=== PATIENT | male | born 1985 | race Caucasian/White ===

== ENCOUNTER 2025-06-14 17:51 | Day surgery (SDC) | payer MEDICAID, SELFPAY ==
[2025-06-14 17:52] VITALS: BP 168/125; PULSE 72; RESP 16; TEMP 35.5; O2SAT 97; BMI 38.7
--- NOTE | 2025-06-14 18:00 | EKG12_ITS ---
Test Reason : CP Blood Pressure : */* mmHG Vent. Rate : 81 BPM Atrial Rate : 81 BPM P-R Int : 160 ms QRS Dur : 98 ms QT Int : 356 ms P-R-T Axes : 37 28 91 degrees QTcB Int : 413 ms Critical Test Result: STEMI Normal sinus rhythm ST elevation consider inferior injury or acute infarct ACUTE SC / STEMI Consider right ventricular involvement in acute inferior infarct Abnormal ECG Confirmed by LUKAS ORDOÑEZ, LEILA ([id number]), video news editor [address] ([id number]) on 06/15/2025 11:03:34 AM Referred By: Callie Sánchez Confirmed By: LEILA GAYTAN MD
[2025-06-14 18:06] VITALS: PULSE 72
[2025-06-14 18:12] VITALS: O2SAT 98
[2025-06-14 18:12] LABS: Hematocrit 52.6 % (40-54); Immature Granulocytes Count 0.050 X10^3/uL (0.0-0.0); Mean Corp Hgb Conc 35.4 g/dL (32-36); Mean Corpuscular Volume 90.8 fL (80-94); Mean Platelet Vol. 10.4 fl (6.2-12.0); NRBC Flagged by Analyzer 0 % (0-5); Platelet Count 370 K/mm3 (150-450); RBC Distribution Width CV 11.9 % (11.6-14.6); RBC Distribution Width SD 39.4 fl (35.1-43.9); Red Blood Count 5.79 M/mm3 (4.6-6.2); White Blood Count 12.3 K/mm3 (4.4-11.0)
[2025-06-14] MEDS: TICAGRELOR 90 MG TABLET 180 MG PO (18:14)
--- NOTE | 2025-06-14 18:15 | ED.VIS.CHEST ---
HPI History of Present Illness Chief Complaint: Chest Pain Informant: spouse/S.O. Onset/Context/Timing Onset: Days Activity at onset: gradual Timing: Intermittent Quality: Positive for Aching, Heaviness and Pain Current Severity: Moderate Maximum Severity: Severe Worsened By: Nothing Relieved By: Nothing Associated Symptoms: Positive for Nausea, Vomiting, Diaphoresis and Dyspnea Narrative Narrative: Healthy 29-year-old male history of kidney stones. Had chest pain on Friday and . Resolved. Yesterday he had no chest pain and he had 3 stuttering episodes of chest pain today associated with nausea and vomiting, diaphoresis and shortness of breath. He has no known cardiac history. His dad of an [place] at 41. Prior Similar Symptoms: No Recent Illness/Hospitalization: No CVD Risk Factors: Positive for Family History 1' </=55; Negative for Hypertension, Diabetes or Hypercholesterolemia PE Risk Factors: Negative for Recent Travel/Surgery, Recent Immobilization, Prior DVT or PE, Cancer or OCP + Smoking + >/=35 TAD Risk Factors: Negative for Marfan's Syndrome [facility] Medical History (Updated 06/14/25 @ 19:[address] Katherine Epperson, DO) Marijuana use Obesity History of renal calculi Tobacco abuse Home Medications ?Medication ?Instructions ?Recorded ?Last Taken ?Type NK 06/14/25 Unknown History Allergy/AdvReac Type Severity Reaction Status Date / Time No Known Allergies Allergy Verified 06/14/25 18:23 Family History (Updated 06/14/25 @ 19:[address] Katherine Epperson, DO) Other CAD (coronary artery disease) Heart disease Social History (Updated 06/14/25 @ 19:[address] Katherine Epperson DO) Smoking Status: Current every day smoker tobacco type: cigarettes alcohol intake: current alcohol intake frequency: 0-2 drinks per day Alcohol type: beer substance use type: marijuana ROS ROS ED ROS Narrative Intermittent chest pain last several days. Shortness of breath. Nausea vomiting. Diaphoresis. Constitutional Constitutional ED: Denies chills or fever(s) Eyes Eyes: Reports none ENT ENT ED: Denies ear pain Cardiovascular Cardiovascular: Reports chest pain Respiratory/Chest Respiratory/Chest: Reports dyspnea and dyspnea on exertion Gastrointestinal Gastrointestinal: Denies abdominal pain or constipation Genitourinary Genitourinary ED: Denies dysuria or hematuria Musculoskeletal Musculoskeletal: Denies arthralgias Integumentary Denies abscess Neurologic Neurologic: Denies headache(s) Psychiatric Psychiatric: Denies anxiety Endocrine Endocrinology: Denies cold intolerance Hematologic/Lymphatic Hematologic/Lymphatic: Denies easy bleeding, easy bruising or lymphadenopathy Allergic/Immunologic Allergic/Immunologic ED: Denies mouth swelling, tongue swelling or urticaria EXAM Physical Exam Narrative Exam Narrative: [id number] male sitting upright in bed vital signs are stable and blood pressure elevated 160/125. Pulse ox 97% on room air no hypoxia. Planing of 6 out of 10 chest pain. present in room. H EENT exam pupils round react light. Moist mutes membranes. Neck nontender. No JVD. No lymphadenopathy. Lungs clear to auscultation bilaterally. Heart regular rhythm rate about 72 no murmur. Chest wall and ribs nontender. Abdomen soft nontender. Moving all 4 extremities. Calves nontender no edema no cords. Normal weapons officer naval activity strength. Equal symmetrical radial pulses. Dorsi plantarflexion intact. Neurologically is awake alert. Answer questions following commands. Const Vital Signs: 06/14/25 17:52 06/14/25 18:12 Temperature 96 F L Temperature Source Temporal Pulse Rate 72 Respiratory Rate 16 Blood Pressure 168/125 H Blood Pressure Mean 139 Pulse Ox 97 98 Oxygen Delivery Method Room Air Room Air Positive well nourished and well developed; Negative for cachectic, contractures or unkempt General Appearance ED: well developed; Negative for unkempt, cachectic, contractures, NAD or pallor Nutritional Appearance: Negative for cachectic HEENT Reports moist mucous membranes normocephalic and atraumatic Eyes PERRL and EOMs intact bilaterally Neck no lymphadenopathy, supple and no JVD General: Negative for tenderness Chest Wall inspection of chest normal and palpation of chest normal Resp normal respiratory effort and clear to auscultation bilaterally Cardio regular rate, regular rhythm, S1 normal heart sound, S2 normal heart sound and no murmurs Peripheral Pulses: pulses 2+ throughout GI normal to inspection, nondistended, normoactive bowel sounds, soft to palpation, non-tender, non-distended and no masses Back/Spine no CVA tenderness and no thoracic nor lumbar tenderness Extremity normal to inspection General Extremety ED: Negative for edema, pulses abnormal or tenderness General Extremity: Negative for edema or pulses abnormal Neuro oriented x3, CN's II-XII intact bilaterally and no sensory deficits noted Sensorium / Orientation: awake, alert, oriented to person, oriented to place and oriented to time Motor Exam: strength 5/5 throughout Psych mental status grossly normal Appearance: Negative for unkempt Attitude: No agitated Mood & Affect: Negative for depressed, anxious or tearful Skin no rashes or lesions noted and no wounds General Skin Exam: Negative for jaundice or pallor Rashes: No rashes noted Heart Score History: Highly Suspicious ECG: Significant ST-Depression (ST elevation inferiorly. Reciprocal changes.) Age: </= 45 years Risk Factors: 1 or 2 Risk Factors Score: 5 MDM MDM MDM Narrative Medical decision making narrative: 39-year-old male presents with chest pain intermittent since Friday. EKGs consistent with acute inferior [place] with ST elevation in 2 [address] elevation in V3 through V6 also. Depression in leads I and aVL and V2. Consistent with inferior lateral [place]. Patient will be treated with 4 baby aspirin, Brilinta 180 p.o. and a heparin bolus and drip. He will be given morphine for pain and Zofran. Pacer pads been applied. Yelitza spoke to engraver machine STEMI team was called once we obtain EKG to be taken to the [facility]. I have discussed this already with the patient and his . Patient was taken to the [facility]. Prior to going to [facility] he was given a second dose of morphine for his pain. He is currently critically ill but stable. History & Record Review Discussion w/independent historian: Patient and Family Additional record(s) reviewed:: No prior records Lab Data Attestation: I reviewed the patient's lab results. Lab results narrative: CBC shows a white count 12.3. H&H 18.6 and 52. Platelets 370. Chemistries show gap 16. BUN and creatinine of 10 and 0.9. Glucose 158. Initial troponin 236. Chest x-ray no acute process normal cardiac silhouette, mediastinum and aortic knob. Portable film. Labs: Laboratory Results - last 24 hr 06/14/25 18:00 WBC 12.3 H RBC 5.79 Hgb 18.6 H* Hct 52.6 MCV 90.8 MCH 32.1 H MCHC 35.4 RDW Std Deviation 39.4 RDW Coeff of Lisa 11.9 Plt Count 370 MPV 10.4 Immature Gran % (Auto) 0.400 Neut % (Auto) 50.9 Lymph % (Auto) 38.3 [place] % (Auto) 7.5 Eos % (Auto) 1.8 Baso % (Auto) 1.1 H Absolute Neuts (auto) 6.2 Absolute Lymphs (auto) 4.69 H Nucleated RBC % 0 PT 12.1 INR 0.9 APTT 21.7 L Sodium 141 Potassium 4.1 Chloride 104 Carbon Dioxide 20.9 L Anion Gap 16 H BUN 10 Creatinine 0.97 Estim Creat Clear Calc 146.47 Est GFR (MDRD) Non-Af 101 BUN/Creatinine Ratio 9.8 L Glucose 158 H Calcium 9.8 Troponin T High Sens 236 H* Radiography Chest X-Ray - ED: 1 View, Read by ED Physician, Normal, Heart, Lungs, Mediastinum, Bony Structures, No Acute Disease and Chronic Changes Diagnostic Testing: Chest x-ray, portable, single view 2 films, interpreted by myself shows normal cardiac silhouette. Normal mediastinum normal aorta. No obvious signs of dissection or widened mediastinum. No acute process. Chronic changes. Rhythm Strip Rhythm Strip: Sinus Rhythm Rate: 81 Ectopy: None EKG Initial EKG: Attestation: I personally reviewed and interpreted this EKG as follows: Interpretation: Sinus Rhythm, No Acute Injury Pattern and S-T Elevation Comments: Normal sinus rhythm. Rate 81. Acute inferolateral [place] with ST elevation in 2, 3, aVF along with ST elevation in V3 through V6 with ST depression in leads I, aVL and V2. Prior EKG tracings: available for review Prior: Changed Critical Care Time Critical Care Time: Yes Critical care time (excluding procedures): 30-74 minutes, Including time spent:, Discussing w/Patient &/or Family/[facility] Frame Tender, Discussing w/Consultants, Arranging Admission or Transfer, Performing Direct Patient Care at Bedside and - (35 minutes.) Discharge Plan Dx/Rx/DC Orders Clinical Impression: Acute inferolateral myocardial infarction, Chest pain, History of renal calculi Disposition Disposition: [facility] Discharge Date/Time: 06/14/25 19:21
[2025-06-14 18:22] LABS: Hemoglobin 18.6 g/dL (13.0-16.5)
[2025-06-14] MEDS: Heparin Injection (Vial) 5,000 UNIT/ML VIAL 4000 UNIT IV (18:25)
--- NOTE | 2025-06-14 18:26 | PCM.HP.STD ---
HPI - General General Date of Admission: 06/14/25 Date of Service: 06/14/25 Chief Complaint: Chest pain HPI Narrative DALTON BECKFORD, is a 39 M who presented to the emergency department at [facility] on 06/14/2025 with a chief complaint of chest pain. Patient has been experiencing accelerated chest symptoms over the last 3 days. Yesterday he had experienced no symptoms. He states initially he was just having intermittent brief episodes but today he had 3 more stuttered periods of pain. He had associated nausea and vomiting, diaphoresis, and shortness of breath. He has no known cardiac history but has known familial cardiac history with his father dying at 41 from a massive [place]. He smokes about a pack of cigarettes daily. He drinks a couple of beers 12 ounce daily. He admits to frequent marijuana use. EKG on arrival was consistent with inferior [place] and STEMI alert was called. Vital signs emergency department showed temperature of 96, heart rate 72, respiratory rate was 16, blood pressure was 168/125 and pulse ox 97% on room air. CBC showed a mild leukocytosis with white count of 12.3, erythrocytosis with a hemoglobin of 18.6 and normal platelet count. Chemistry panel showed normal electrolytes and renal function his glucose was 158 and his initial troponin was 236. Chest x-ray was unremarkable. He was treated in the emergency department with aspirin, heparin and placed on a heparin drip, and given morphine and Brilinta and was taken emergently to the [facility]. [facility] Medical History (Updated 06/14/25 @ 19:[address] Katherine Epperson DO) Marijuana use Obesity History of renal calculi Tobacco abuse Home Medications ?Medication ?Instructions ?Recorded ?Last Taken ?Type NK 06/14/25 Unknown History Allergy/AdvReac Type Severity Reaction Status Date / Time No Known Allergies Allergy Verified 06/14/25 18:23 Family History (Updated 06/14/25 @ 19:[address] Katherine Epperson DO) Other CAD (coronary artery disease) Heart disease no surgical history Social History (Updated 06/14/25 @ 19:[address] Katherine Epperson DO) Smoking Status: Current every day smoker tobacco type: cigarettes alcohol intake: current alcohol intake frequency: 0-2 drinks per day Alcohol type: beer substance use type: marijuana ROS Constitutional Constitutional: Reports fatigue and weakness; Denies anorexia, change in weight, chills, fever(s), malaise, night sweats or other Eyes Eyes: Denies blurry vision, change in eye color, change in vision, discharge from eye(s), double vision, erythema, eye pain, loss of vision or other ENT HEENT: Denies abnormal hearing, dysphagia, ear pain, epistaxis, headache(s), hearing loss, nasal congestion, nasal discharge, post nasal drip, sinus pressure, sore throat or other Cardiovascular Cardiovascular: Reports chest pain and other Details: Diaphoresis ; Denies claudication, dyspnea on exertion, edema, lightheadedness, orthopnea, palpitations, paroxysmal nocturnal dyspnea, rapid heart rate or syncope Respiratory/Chest Respiratory/Chest: Reports dyspnea and shortness of breath at rest; Denies cough, excessive phlegm production, hemoptysis, productive cough, shortness of breath with exertion, wheezing or other Gastrointestinal Gastrointestinal: Reports nausea and vomiting; Denies abdominal pain, coffee ground emesis, constipation, diarrhea, dyspepsia, hematemesis, hematochezia, loose stools, melena or other Genitourinary Genitourinary: Denies burning urination, difficulty urinating, dysuria, hematuria, nocturia, urinary frequency, urinary hesitancy, urinary incontinence, urinary urgency or other Musculoskeletal Musculoskeletal: Reports back pain; Denies arthralgias, joint pain, joint stiffness, joint swelling, myalgias, neck pain or other Neurologic Neurologic: Denies abnormal gait, abnormal speech, confusion, disequilibrium, dizziness, focal weakness, headache(s), numbness, paresthesias, seizure-like activity, seizures, syncope, tingling, tremor(s) or other Psychiatric Psychiatric: Denies anxiety, depression, homicidal ideation, suicidal ideation or other Endocrine Endocrinology: Denies change in body appearance, cold intolerance, excessive sweating, heat intolerance, polydipsia, polyuria or other Hematologic/Lymphatic Hematologic/Lymphatic: Denies anemia, easy bleeding, easy bruising, lymphadenopathy or other Allergic/Immunologic Allergic/Immunologic: Denies rhinitis, hives, eczemia, asthma or other Vital Signs Vital Signs Vital Signs: 06/14/25 17:52 06/14/25 18:12 Temperature 96 F L Temperature Source Temporal Pulse Rate 72 Respiratory Rate 16 Blood Pressure 168/125 H Blood Pressure Mean 139 Pulse Ox 97 98 Oxygen Delivery Method Room Air Room Air Weight Weight: 133.356 kg Body Mass Index (BMI) 38.7 Physical Exam Const alert, oriented x3 and well nourished; Negative for no apparent distress, average body habitus or healthy appearing Constitutional Narrative: Obese, diaphoretic, uncomfortable appearing, white male, sitting up in bed, significant other at bedside, does not appear toxic General Appearance: cooperative HEENT normocephalic, head/scalp atraumatic, hearing grossly normal bilaterally and moist oral mucous membranes HEENT Narrative: Mallampati 3-4, no thrush Eyes conjunctivae normal Eyes Narrative: No scleral icterus Neck Neck Narrative: Neck is short and thick Resp normal respiratory effort, no retractions, no use of accessory muscles and clear to auscultation bilaterally Auscultation: Negative for crackles, rhonchi or wheezes Cardio regular rate, regular rhythm, S1 normal heart sound, S2 normal heart sound, no murmurs, no rub, no gallops and no clicks GI normal to inspection, nondistended, normoactive bowel sounds, soft to palpation and non-tender GI Narrative: Protuberant abdomen Extremity no clubbing, cyanosis or edema Extremity Narrative: Radial and pedal pulses are 2+ Neuro moves all extremities and no focal motor deficits Speech: speech normal Psych Psych Narrative: Slightly antsy, appears anxious Results Lab / Micro Data 06/14/25 18:00 06/14/25 18:00 Labs: Laboratory Results - last 24 hr 06/14/25 18:00: WBC 12.3 H, RBC 5.79, Hgb 18.6 H*, Hct 52.6, MCV 90.8, MCH 32.1 H, MCHC 35.4, RDW Std Deviation 39.4, RDW Coeff of Lisa 11.9, Plt Count 370, MPV 10.4, Immature Gran % (Auto) 0.400, Neut % (Auto) 50.9, Lymph % (Auto) 38.3, [place] % (Auto) 7.5, Eos % (Auto) 1.8, Baso % (Auto) 1.1 H, Absolute Neuts (auto) 6.2, Absolute Lymphs (auto) 4.69 H, Nucleated RBC % 0 Rhythm Strip Rhythm Strip: Sinus Rhythm Rate: 81 Ectopy: None Assessment & Plan Assessment/Plan (1) Hyperglycemia: (2) Erythrocytosis: (3) Leukocytosis: (4) Acute inferolateral myocardial infarction: (5) Chest pain: PLAN: Plan Acute inferior wall STEMI -Patient taken emergently to the [facility] - Given Brilinta, aspirin, heparin, morphine, and Zofran in the emergency department - Admit to ICU postcardiac catheterization - Start aspirin 81 mg daily - atorvastatin 80 mg daily - Check lipids - Check hemoglobin A1c - Check echocardiogram - Cardiology to add p.o. metoprolol and RONY inhibitor as able - Cardiology consulted Leukocytosis - Suspect reactive - Repeat CBC in a.m. Erythrocytosis - Unclear if this is baseline or acute - Trend - Could have chronic hypoxia related to obesity hypoventilation syndrome or untreated obstructive sleep apnea versus chronic CO elevation due to tobacco abuse Hyperglycemia - Suspect reactive and nonfasting - 158 - Check hemoglobin A1c Tobacco abuse - Recommend cessation and discussed with patient on admission -Continue reinforcement - Nicotine patch if patient needs Marijuana use - Recommend cessation Obesity - BMI 38.8 - Recommend weight loss - Complicates treatment, prognosis, outcomes DVT prophylaxis - Subcu Lovenox 40 twice daily CODE STATUS - Full code Charges/Coding Visit Charges Inpatient E&M: 53639 Init Hosp L2
--- NOTE | 2025-06-14 18:28 | RAD_ITS ---
PROCEDURE: CHEST 1 VIEW (PORTABLE) 06/14/2025 REASON FOR EXAM: CHEST PAIN TECHNIQUE: Frontal view of the chest. COMPARISON: None. FINDINGS: LUNGS AND PLEURA: The lungs are clear. No pleural effusion or pneumothorax. HEART AND MEDIASTINUM: The heart size and mediastinal contours are normal. BONES: No acute osseous abnormality. RAD/Chest 1 View (Portable) IMPRESSION: Negative Chest. Reading Location: [id number]
[2025-06-14 18:40] LABS: Anion Gap 16 (5-15); BUN 10 mg/dL (4-19); BUN/Creat Ratio 9.8 RATIO (10-20); Calcium,Total 9.8 mg/dL (7.6-11.0); Carbon Dioxide 20.9 mmol/L (21.0-32.0); Chloride 104 mmol/L (98-108); Estimated Creatinine Clearance 146.47 ml/min (50-250); Glucose 158 mg/dL (70-99); Potassium 4.1 mmol/L (3.3-5.1); Troponin T High Sensitivity 236 ng/L (<=22)
[2025-06-14 18:46] VITALS: BP 172/124; PULSE 82; RESP 22; TEMP 36.6; O2SAT 98
[2025-06-14 19:33] LABS: Prothrombin Time (Protime)PT. 12.1 SECONDS (11.7-14.9)
[2025-06-14 19:34] LABS: Partial Thromboplast Time 21.7 Seconds (24.1-36.2)
--- NOTE | 2025-06-14 19:39 | CM.ED ---
Social Work Reason for visit: STEMI alert SW met with patients sig other in the hallway while they were getting patient ready to go to laboratory inspector. SO stated that patient had been having symptoms on and off for 3 days before she could get him to agree to come in. SO grateful for care patient was receiving. No further needs at this time. Aidee Chavis, FIRE EQUIPMENT INSPECTOR, HAZARDOUS SUBSTANCES ENGINEER
--- NOTE | 2025-06-14 20:48 | DS.PCM_ITS ---
Providers Date of Discharge: 06/14/25 Primary Care Physician: No Primary Care Phys Consultations 06/14/25 18:30 Consult: Cardiology Stat Consulting Provider: Callie Sánchez Reason for Consult: STEMI EMERGENT Consult: Yes MD Notified: Yes Date Notified: 06/14/25 Time Notified: 18:28 Method of Notification: ED Physician Initiated Reason For Visit: STEMI Diagnosis Discharge Diagnosis (1) Hyperglycemia: Status: Acute Code(s): R73.9 - Hyperglycemia, unspecified (2) Erythrocytosis: Status: Acute Code(s): D75.1 - Secondary polycythemia (3) Leukocytosis: Status: Acute Code(s): D72.829 - Elevated white blood cell count, unspecified (4) Acute inferolateral myocardial infarction: Status: Acute Code(s): I21.19 - ST elevation (STEMI) myocardial infarction involving other coronary artery of inferior wall (5) Chest pain: Status: Acute Code(s): R07.9 - Chest pain, unspecified Medications at Discharge Home Medications NK 06/14/25 Hospital Course Operations None Procedures Cardiac catheterization and EKG Summary of Care Provided Hospital Course: DALTON BECKFORD, is a 39 M who presented to the emergency department at [facility] on 06/14/2025 with a chief complaint of chest pain. Patient has been experiencing accelerated chest symptoms over the last 3 days. Yesterday he had experienced no symptoms. He states initially he was just having intermittent brief episodes but today he had 3 more stuttered periods of pain. He had associated nausea and vomiting, diaphoresis, and shortness of breath. He has no known cardiac history but has known familial cardiac history with his father dying at 41 from a massive [place]. He smokes about a pack of cigarettes daily. He drinks a couple of beers 12 ounce daily. He admits to frequent marijuana use. EKG on arrival was consistent with inferior [place] and STEMI alert was called. Vital signs emergency department showed temperature of 96, heart rate 72, respiratory rate was 16, blood pressure was 168/125 and pulse ox 97% on room air. CBC showed a mild leukocytosis with white count of 12.3, erythrocytosis with a hemoglobin of 18.6 and normal platelet count. Chemistry panel showed normal electrolytes and renal function his glucose was 158 and his initial troponin was 236. Chest x-ray was unremarkable. He was treated in the emergency department with aspirin, heparin and placed on a heparin drip, and given morphine and Brilinta and was taken emergently to the [facility]. Unfortunately, in the [facility] we were unable to cannulate the lesion to place a stent initially and then when we were able to cannulate the patient moved and we are unable to reaccessed the vessel. Patient developed bradycardia and was given several rounds of atropine and a temporary pacemaker was placed in the right groin. Given these issues, the patient was transferred to [facility] and flown via helicopter on 06/14/2025. Discharge diagnoses: Acute inferior wall STEMI Leukocytosis Erythrocytosis Hyperglycemia Tobacco abuse Alcohol use Marijuana use Obesity Weight / BMI Weight Weight: 133.356 kg Body Mass Index (BMI) 38.7 ABG / Lab / Microbiology Data 06/14/25 18:00 06/14/25 18:00 Laboratory: Laboratory Results - last 24 hr 06/14/25 18:00: WBC 12.3 H, RBC 5.79, Hgb 18.6 H*, Hct 52.6, MCV 90.8, MCH 32.1 H, MCHC 35.4, RDW Std Deviation 39.4, RDW Coeff of Lisa 11.9, Plt Count 370, MPV 10.4, Immature Gran % (Auto) 0.400, Neut % (Auto) 50.9, Lymph % (Auto) 38.3, [place] % (Auto) 7.5, Eos % (Auto) 1.8, Baso % (Auto) 1.1 H, Absolute Neuts (auto) 6.2, Absolute Lymphs (auto) 4.69 H, Nucleated RBC % 0, PT 12.1, INR 0.9, APTT 21.7 L, Sodium 141, Potassium 4.1, Chloride 104, Carbon Dioxide 20.9 L, Anion Gap 16 H, BUN 10, Creatinine 0.97, Estim Creat Clear Calc 146.47, Est GFR (MDRD) Non-Af 101, BUN/Creatinine Ratio 9.8 L, Glucose 158 H, Calcium 9.8, Troponin T High Sens 236 H* Radiography Diagnostic Testing: Radiology Impression Chest X-Ray 06/14/25 18:28 IMPRESSION: Negative Chest. Reading Location: [id number] D/C Instructions DC O2, CPAP, BIPAP Needs Home O2 Discharge instructions: No Meaningful Use Info Meaningful Use Meaningful Use Diagnoses (Choose all that apply): AMI AMI/Post PCI/Angioplasty Aspirin given w/in 24hrs of arrival?: Yes ASA at discharge?: Yes Antiplatelet Therapy at Discharge:: Yes Statins at discharge?: Yes Kash/ARB at discharge?: No Reason Kash/ARB not ordered:: Not indicated Beta Santiago at discharge?: No Reason Beta Santiago not ordered:: Drug Interaction Done w/ Acute [place] measure.: No Discharge Plan Dx/Rx/DC Orders Clinical Impression: Acute inferolateral myocardial infarction, Chest pain, History of renal calculi Disposition Disposition: Acute Care Hospital [facility] Discharge Date/Time: 06/14/25 19:21
[2025-06-14 21:21] LABS: ACT Activated Clotting Time 95 sec (74-137)
[2025-06-14 21:21] LABS: ACT Activated Clotting Time 83 sec (74-137)
--- NOTE | 2025-06-15 15:17 | PCM.CONS.C ---
Assessment & Plan Assessment/Plan (1) Acute inferolateral myocardial infarction: PLAN: Patient was started on aspirin, heparin, Brilinta. He was also given Integrilin when he was on the Table. PTCA alone was performed and patient was transferred to [facility] as described above. HPI Consult Data Date of Consult: 06/15/25 HPI Narrative Reason for Consultation: STEMI HPI Narrative: DALTON BECKFORD, is a 39 M who presents [with chest pain. Chest pain had been going on for about 2 days on and off. Today it became worse and he came to the emergency room. In the ER he was found to have inferior ST elevation IA on the EKG and a STEMI alert was called. He was brought emergently to the cardiac [facility]. There was difficulty crossing the RCA occlusion which was the culprit for the patient presentation. Since patient was having ongoing pain and we had not crossed the lesion we made arrangements to transfer the patient to a tertiary center where bypass surgery could be performed if required. While we were waiting for air transport we continued with attempts at PCI and we are finally able to cross the lesion. We did PTCA. Patient was moving around a lot on the table. We had a dedicated person holding his arm but despite that patient attempted to get off the table and ended up getting the wire out of his coronary artery. By this time the air ambulance personnel were already onsite and we felt that it is better to transfer the patient to a tertiary center. A transvenous temporary pacemaker was placed. Patient was stable and was transferred to [facility] for further management.] [facility] Medical History (Updated 06/14/25 @ 19:[address] Katherine Epperson DO) Marijuana use Obesity History of renal calculi Tobacco abuse Home Medications ?Medication ?Instructions ?Recorded ?Last Taken ?Type NK 06/14/25 Unknown History Allergy/AdvReac Type Severity Reaction Status Date / Time No Known Allergies Allergy Verified 06/14/25 18:23 Family History (Updated 06/14/25 @ 19:[address] Katherine Epperson DO) Other CAD (coronary artery disease) Heart disease Surgical History no surgical history Social History (Updated 06/14/25 @ 19:[address] Katherine Epperson DO) Smoking Status: Current every day smoker tobacco type: cigarettes alcohol intake: current alcohol intake frequency: 0-2 drinks per day Alcohol type: beer substance use type: marijuana Physical Exam Const alert and oriented x3 Constitutional Narrative: In moderate distress due to chest and back pain. HEENT normocephalic Eyes no scleral icterus Resp normal respiratory effort Cardio regular rate Psych mental status grossly normal Charges/Coding Visit Charges Inpatient E&M: 97752 Init Hosp L1 Objective Data Vital Signs: Vital Signs Temp Pulse Resp BP Pulse Ox O2 Del Method 98 F 82 22 H 172/124 H 98 Room Air 06/14/25 18:46 06/14/25 18:46 06/14/25 18:46 06/14/25 18:46 06/14/25 18:46 06/14/25 18:12 Oxygen Delivery Method Room Air Weight: 294 lb Body Mass Index (BMI) 38.7 Lab / Micro Data 06/14/25 18:00 06/14/25 18:00 Labs: Laboratory Results - last 24 hr 06/14/25 18:00: WBC 12.3 H, RBC 5.79, Hgb 18.6 H*, Hct 52.6, MCV 90.8, MCH 32.1 H, MCHC 35.4, RDW Std Deviation 39.4, RDW Coeff of Lisa 11.9, Plt Count 370, MPV 10.4, Immature Gran % (Auto) 0.400, Neut % (Auto) 50.9, Lymph % (Auto) 38.3, [place] % (Auto) 7.5, Eos % (Auto) 1.8, Baso % (Auto) 1.1 H, Absolute Neuts (auto) 6.2, Absolute Lymphs (auto) 4.69 H, Nucleated RBC % 0, PT 12.1, INR 0.9, APTT 21.7 L, Sodium 141, Potassium 4.1, Chloride 104, Carbon Dioxide 20.9 L, Anion Gap 16 H, BUN 10, Creatinine 0.97, Estim Creat Clear Calc 146.47, Est GFR (MDRD) Non-Af 101, BUN/Creatinine Ratio 9.8 L, Glucose 158 H, Calcium 9.8, Troponin T High Sens 236 H* 06/14/25 19:31: Activated Clotting Time 95 06/14/25 19:36: Activated Clotting Time 83 Rhythm Strip Rhythm Strip: Sinus Rhythm Rate: 81 Ectopy: None Cardiology Labs/Tests 06/14/25 18:00: WBC 12.3 H, RBC 5.79, Hgb 18.6 H*, Hct 52.6, MCV 90.8, MCH 32.1 H, MCHC 35.4, Plt Count 370, MPV 10.4, Immature Gran % (Auto) 0.400, Neut % (Auto) 50.9, Lymph % (Auto) 38.3, [place] % (Auto) 7.5, Eos % (Auto) 1.8, Baso % (Auto) 1.1 H, Absolute Neuts (auto) 6.2, Nucleated RBC % 0, PT 12.1, INR 0.9, APTT 21.7 L, Sodium 141, Potassium 4.1, Chloride 104, Carbon Dioxide 20.9 L, Anion Gap 16 H, BUN 10, Creatinine 0.97, Est GFR (MDRD) Non-Af 101, BUN/Creatinine Ratio 9.8 L, Glucose 158 H, Calcium 9.8 Rhythm: EKG: ECHO: Stress Test: Cardiac Cath: PCI: CT Surgery: Holter monitor: EPS: PPM: CXR: Chest CT Scan: Radiography Diagnostic Testing: Radiology Impression Chest X-Ray 06/14/25 18:28 IMPRESSION: Negative Chest. Reading Location: [id number] Risk Score for UA/STEMI Assesmment (YES = 1) Risk Stratification Applicable: No
--- NOTE | 2025-06-16 14:32 | CL.I_ITS ---
Patient Name: DALTON BECKFORD Study Date: 06/14/2025 Performing: Samy Sánchez MD Ht: 73 inches 185.42 cm : 1985 Wt: 294.4 lbs 133.36 kg Age: 39 Gender: male BSA: 2.53 PROCEDURE(S) PERFORMED DC02-(71518)LHC/COR LP13-(85625)TEMPORARY INTRAVENTRICULAR PACING IC16-(62570/C9606)AMI, BUCK OR PTCA, ARTERY/GRAFT, SINGLE VESSEL CLINICAL PROFILE AND CO-MORBIDITIES Indications: STEMI Heart Failure: None CONCLUSIONS CAD as described. PTCA alone of the RCA as described. Successful temporary pacemaker placement. Patient was transferred to [facility] for further care. RECOMMENDATIONS DESCRIPTION OF PROCEDURE The patient arrived to the procedure lab. The risks and benefits of the procedure as well as a full description of our services here and lack of surgical backup were fully explained to the patient and/or their significant other prior to the catheterization. The Timeout was completed, verifying the correct patient and procedure. The patient's procedural site was prepped and draped in the usual fashion. Local anesthetic was given subcutaneously to right radial region with Lidocaine 2%. Using a modified Seldinger technique, arterial access was obtained via the right radial artery, a 6Fr sheath was inserted.. Right Coronary Artery selective angiography was then performed in multiple views using a 5 Fr. XB3. Left Coronary Artery selective angiography was performed in multiple views using a 5 Fr. JL3.5 catheterTemporary Pacemaker was inserted into the right femoral vein and advanced to the RV apex, settings were placed at a rate of 60 6 MA 3 V, Additional Lesion Comments: There was difficulty crossing the lesion with the guidewire and this led to delay to PCI. We could not cross the lesion for several minutes and patient had episodes of bradycardia requiring atropine administration. At this point we feel that it is best to transfer the patient to a tertiary center where bypass surgery is available. We contacted [facility] and patient was accepted. Air ambulance was called. While we were waiting for the air ambulance we continued attempts at PCI. We were finally able to cross the occlusion and performed PTCA. At this point the patient sat up on the table and ended up pulling the wire out of his coronary. The ambulance personnel were already at the bedside. We felt that instead of attempting PCI further it would be best to transfer the patient to a tertiary center. A temporary pacemaker was placed successfully. It was capturing well. Patient was then transferred to [facility]. Patient was stable at the time of transfer. XB3 Guide catheter was inserted and engaged into the RCA. {L1} BMW Guide wire was advanced to the RCA. WHISPER WIRE Guide wire was inserted as a shelia wire JR 4 Guide catheter was inserted and engaged into the RCA. WHISPER WIRE Guide wire was advanced to the RCA. Arterial sheath was exchanged for a 6 Fr Sheath. Priority One inserted Pass # 1 Priority One Removed JR 4 Guide catheter was exchanged for a AR 2 AR 2 Guide catheter was exchanged for a AR 1 WHISPER Guide wire was advanced to the RCA. WHISPER WIRE Guide wire was inserted as a shelia wire EMERGE 2.5 X 20 Balloon catheter was inserted. Balloon catheter was advanced across lesion in the right coronary, proximal PTCA balloon inflated at 6 atms for 10 secs. PTCA balloon inflated at 6 atms for 8 secs. PTCA balloon inflated at 6 atms for 9 secs. PTCA balloon inflated at 6 atms for 8 secs. PTCA balloon inflated at 6 atms for 9 secs. AR 1 Guide catheter was inserted and engaged into the RCA. The arterial sheath was sutured in place with heparinized normal saline under pressure RIGHT RADIAL CORONARY ANGIOGRAPHY DOMINANCE: Right Dominant LEFT MAIN: Mild luminal irregularities LEFT ANTERIOR DESCENDING ARTERY: Mild luminal irregularities CIRCUMFLEX ARTERY: Mild luminal irregularities OM 1: Proximal - 30-40 % Stenosis RIGHT CORONARY ARTERY: occluded in the proximal to mid portion INTERVENTION INFORMATION LESION SITE: RCA (Mid) Lesion Complexity: High/C, chronic total occlusion: No, lesion at bifurcation: No, thrombus present: Yes, lesion length: 40 mm, culprit lesion: Yes, Previously treated lesion: No Pre Stenosis: 100 % Pre intervention LYNN flow: 0 PROCEDURE: Balloon Angioplasty There was difficulty crossing the lesion with the guidewire and this led to delay to PCI. We could not cross the lesion for several minutes and patient had episodes of bradycardia requiring atropine administration. At this point we feel that it is best to transfer the patient to a tertiary center where bypass surgery is available. We contacted [facility] and patient was accepted. Air ambulance was called. While we were waiting for the air ambulance we continued attempts at PCI. We were finally able to cross the occlusion and performed PTCA. At this point the patient sat up on the table and ended up pulling the wire out of his coronary. The ambulance personnel were already at the bedside. We felt that instead of attempting PCI further it would be best to transfer the patient to a tertiary center. A temporary pacemaker was placed successfully. It was capturing well. Patient was then transferred to [facility]. Patient was stable at the time of transfer. Post Stenosis: 100 % Post intervention LYNN flow: 0 Lesion Devices: Cade .014 190cm BMW [place] Straight Medtronic 6 Fr JR4.0 100cm Guide Catheter Terumo Priority One Aspiration Catheter Cade .014 190cm HT Whisper MS Straight Cordis 6 Fr AR2 100cm Guide Catheter Cordis 6 Fr AL1.0 100cm Guide Catheter Cade .014 190cm HT Whisper MS Straight Guillermo Sci EMERGE MR 2.50x20 BALLOON COMPLICATIONS No Complications PROCEDURE MEDICATIONS Versed 2 mg IV Fentanyl 50 mcg IV Fentanyl 50 mcg IV Versed 2 mg IV Fentanyl 50 mcg IV Oxygen: 2 L/min via nasal cannula Atropine 1mg/10ml 1 amp 06/14/2025 19:12:40 Atropine 1mg/10ml 1 amp 06/14/2025 19:12:40 Atropine 1mg/10ml 1 amp 06/14/2025 19:31:44 Atropine 1mg/10ml 1 amp @ 06/14/2025 19:38:06 Heparin 5000 unit(s) IV 06/14/2025 18:59:18 Heparin 2000 unit(s) IV 06/14/2025 19:42:30 Heparin 5000 unit(s) IV 06/14/2025 20:38:53 Verapamil 2.5mg, Ntg 100mcgs, giveb IA 06/14/2025 18:58:48 IV Bolus: .9 NaCl 500 ml total 06/14/2025 19:45:27 SUMMARY OF HEMODYNAMIC DATA Time AIR REST AO 0/0 (0) 18:49:03 AO 172/129 (150) 19:01:55 ECG 20:40:55 Signed By Samy Sánchez MD On 06/16/2025 14:31:46 Samy Sánchez MD
== END 2025-06-14 20:54 | disposition short-term general hospital (02) ==
LOC: ED 18:15 → ICU 18:55 → ED 06-24 11:35 → CLINP 06-24 11:35 → CLSP 06-24 11:37
PROVIDERS: Internal Medicine; Emergency Provider Emergency Medicine; Referring Provider Specialist; Visit Provider Specialist
DX: I21.19 ST elevation (STEMI) myocardial infarction involving other coronary artery of inferior wall (principal); D72.829 Elevated white blood cell count, unspecified; Z68.38 Body mass index [BMI] 38.0-38.9, adult; D75.1 Secondary polycythemia; R73.9 Hyperglycemia, unspecified; E78.00 Pure hypercholesterolemia, unspecified; R11.2 Nausea with vomiting, unspecified; E66.9 Obesity, unspecified; Z82.49 Family history of ischemic heart disease and other diseases of the circulatory system; F17.210 Nicotine dependence, cigarettes, uncomplicated
CPT/HCPCS: 92941; 33210; 71045; 80048; 84484; 85025; 85347; 85610; 85730; 93005; 93454; 96374; 96375; 99152; 99153; 99285; C1757; C1769; C1887; C1894; Q9967; A4216; C1725; C9606; J1327; J2405

== ENCOUNTER 2025-08-05 10:01 | Outpatient (CLI) | payer MEDICAID, SELFPAY ==
[2025-08-05 10:34] LABS: Hematocrit 32.7 % (40-54); Hemoglobin 10.6 g/dL (13.0-16.5); Immature Granulocytes Count 0.020 X10^3/uL (0.0-0.0); Mean Corp Hgb Conc 32.4 g/dL (32-36); Mean Corpuscular Volume 90.1 fL (80-94); Mean Platelet Vol. 9.6 fl (6.2-12.0); NRBC Flagged by Analyzer 0 % (0-5); Platelet Count 283 K/mm3 (150-450); RBC Distribution Width CV 13.9 % (11.6-14.6); RBC Distribution Width SD 45.9 fl (35.1-43.9); Red Blood Count 3.63 M/mm3 (4.6-6.2); White Blood Count 8.0 K/mm3 (4.4-11.0)
[2025-08-05 11:01] LABS: AST(SGOT) 17 U/L (<=37); Alanine Aminotransfer ALT/SGPT 13 U/L (<=46); Albumin, Serum 4.3 g/dL (3.5-5.0); Alkaline Phosphatase 87 U/L (40-129); Anion Gap 12 (5-15); BUN 8 mg/dL (4-19); BUN/Creat Ratio 6.9 RATIO (10-20); Calcium,Total 9.5 mg/dL (7.6-11.0); Carbon Dioxide 23.5 mmol/L (21.0-32.0); Chloride 104 mmol/L (98-108); Globulin 3.0 g/dL (2.2-4.2); Glucose 109 mg/dL (70-99); Potassium 4.5 mmol/L (3.3-5.1)
[2025-08-05 11:48] LABS: CPK Total, Creatine Kinase 67 U/L (24-195)
== END 2025-08-05 23:59 | disposition home or self-care (01) ==
PROVIDERS: Referring Provider Internal Medicine Infectious Disease; Visit Provider Internal Medicine Infectious Disease
DX: I33.0 Acute and subacute infective endocarditis (principal)
CPT/HCPCS: 36592; 80053; 82550; 85025; A4216

== ENCOUNTER 2025-08-12 09:00 | Outpatient (CLI) | payer MEDICAID, SELFPAY ==
[2025-08-12 09:48] LABS: Hematocrit 35.2 % (40-54); Hemoglobin 11.3 g/dL (13.0-16.5); Immature Granulocytes Count 0.040 X10^3/uL (0.0-0.0); Mean Corp Hgb Conc 32.1 g/dL (32-36); Mean Corpuscular Volume 90.7 fL (80-94); Mean Platelet Vol. 9.8 fl (6.2-12.0); NRBC Flagged by Analyzer 0 % (0-5); Platelet Count 253 K/mm3 (150-450); RBC Distribution Width CV 14.4 % (11.6-14.6); RBC Distribution Width SD 47.1 fl (35.1-43.9); Red Blood Count 3.88 M/mm3 (4.6-6.2); White Blood Count 6.0 K/mm3 (4.4-11.0)
[2025-08-12 10:00] LABS: Prothrombin Time (Protime)PT. 14.8 SECONDS (11.7-14.9)
[2025-08-12 10:01] LABS: Partial Thromboplast Time 27.7 Seconds (24.1-36.2)
[2025-08-12 10:46] LABS: AST(SGOT) 20 U/L (<=37); Alanine Aminotransfer ALT/SGPT 16 U/L (<=46); Albumin, Serum 4.5 g/dL (3.5-5.0); Alkaline Phosphatase 73 U/L (40-129); Anion Gap 11 (5-15); BUN 13 mg/dL (4-19); BUN/Creat Ratio 13.0 RATIO (10-20); Calcium,Total 10.0 mg/dL (7.6-11.0); Carbon Dioxide 21.8 mmol/L (21.0-32.0); Chloride 103 mmol/L (98-108); Ferritin 83 ng/mL (37-417); Globulin 3.1 g/dL (2.2-4.2); Glucose 105 mg/dL (70-99); Potassium 4.4 mmol/L (3.3-5.1); Vitamin B12 554 pg/mL (180-914); Vitamin D,25 Hydroxy 23.2 ng/mL (30-100)
[2025-08-12 10:59] LABS: Iron 69 ug/dL (65-175); Iron Binding Capacity,Total 413 ug/dL (250-450); Iron Binding Capacity,Unsat 344 ug/dL (228-428)
[2025-08-12 11:33] LABS: AST(SGOT) 21 U/L (<=37); Alanine Aminotransfer ALT/SGPT 16 U/L (<=46); Albumin, Serum 4.4 g/dL (3.5-5.0); Alkaline Phosphatase 73 U/L (40-129); Bilirubin, Direct 0.26 mg/dL (0.00-0.30); CPK Total, Creatine Kinase 55 U/L (24-195); Globulin 3.2 g/dL (2.2-4.2); Magnesium 1.9 mg/dL (1.5-2.2); Triglycerides 112 mg/dL
== END 2025-08-12 23:59 | disposition home or self-care (01) ==
LOC: MEDOUTP 09:00
PROVIDERS: Nurse Practitioner Family; Referring Provider Internal Medicine Infectious Disease; Visit Provider Internal Medicine Infectious Disease
DX: R53.83 Other fatigue (principal)
CPT/HCPCS: 36592; 80053; 80076; 82306; 82550; 82607; 82728; 83540; 83550; 83735; 84100; 84439; 84443; 84478; 85025; 85610; 85730; A4216

== ENCOUNTER 2025-08-19 08:26 | Outpatient (CLI) | payer MEDICAID, SELFPAY ==
[2025-08-19 08:57] LABS: Hematocrit 35.5 % (40-54); Hemoglobin 11.5 g/dL (13.0-16.5); Immature Granulocytes Count 0.010 X10^3/uL (0.0-0.0); Mean Corp Hgb Conc 32.4 g/dL (32-36); Mean Corpuscular Volume 89.6 fL (80-94); Mean Platelet Vol. 9.7 fl (6.2-12.0); NRBC Flagged by Analyzer 0 % (0-5); Platelet Count 227 K/mm3 (150-450); RBC Distribution Width CV 14.2 % (11.6-14.6); RBC Distribution Width SD 46.1 fl (35.1-43.9); Red Blood Count 3.96 M/mm3 (4.6-6.2); White Blood Count 6.5 K/mm3 (4.4-11.0)
[2025-08-19 09:26] LABS: AST(SGOT) 18 U/L (<=37); Alanine Aminotransfer ALT/SGPT 14 U/L (<=46); Albumin, Serum 4.3 g/dL (3.5-5.0); Alkaline Phosphatase 65 U/L (40-129); Anion Gap 12 (5-15); BUN 10 mg/dL (4-19); BUN/Creat Ratio 9.0 RATIO (10-20); CPK Total, Creatine Kinase 56 U/L (24-195); Calcium,Total 9.5 mg/dL (7.6-11.0); Carbon Dioxide 21.9 mmol/L (21.0-32.0); Chloride 103 mmol/L (98-108); Globulin 2.9 g/dL (2.2-4.2); Glucose 127 mg/dL (70-99); Potassium 3.7 mmol/L (3.3-5.1)
== END 2025-08-19 23:59 | disposition home or self-care (01) ==
LOC: MEDOUTP 08:26
PROVIDERS: Referring Provider Internal Medicine Infectious Disease; Visit Provider Internal Medicine Infectious Disease
DX: R53.83 Other fatigue (principal)
CPT/HCPCS: 36592; 80053; 82550; 85025; A4216